=== PATIENT | male | born 1950 | race Caucasian/White ===

== ENCOUNTER → 2016-09-08 15:24 | Outpatient (CLI) | payer BC, MEDICARE | END | disposition home or self-care (01) | LOC: D.CT 15:24 | DX: R10.32 Left lower quadrant pain (principal); R10.9 Unspecified abdominal pain ==

== ENCOUNTER → 2016-12-09 14:02 | Outpatient (CLI) | payer BC, MEDICARE | END | disposition home or self-care (01) | LOC: D.MRI 14:02 | DX: R22.1 Localized swelling, mass and lump, neck (principal) ==

== ENCOUNTER → 2019-05-15 10:27 | Outpatient (CLI) | payer BC, MEDICARE ==
--- NOTE | 2019-05-16 11:25 | EC ---
PATIENT:FARHEEN PULIDO JR DATE OF SERVICE: 05/15/19 SEX: M MEDICAL RECORD: [id number] DATE OF : 46 LOCATION:[facility] AGE OF PATIENT: 68 ADMISSION DATE: 05/15/19 REFERRING PHYSICIAN: INTERPRETING PHYSICIAN: RANDA BERRY MD ECHOCARDIOGRAM REPORT ECHO CHARGES 4 ECHO COMPLETE Date: 05/15/19 CLINICAL DIAGNOSIS: HTN/CHEST PAIN ECHOCARDIOGRAPHIC MEASUREMENTS (adult normal given) AC root (d.<3.7cm) 3.8 cm LV Septum d (<1.2 cm> 1.2 cm Valve Excursion 1.8 cm LV Septum (systole) 1.3 cm Left Atria (s.<4.0cm> 3.8 cm LVPW d(<1.2cm) 1.3 cm RV (d.<2.3cm) 4.3 cm LVPW (sytole) 1.6 cm LV diastole(<5.6CM) 5.6 cm MV E-F(>70mm/sec) cm LV systole 3.5 cm LVOT Diameter 1.9 cm MV exc.(>10mm) 1.2 cm Est.ejection fraction (50-75%) % DOPPLER: LVIT cm/sec A 81.0 cm/sec E 49.0 cm/sec LA cm/sec RVSP 15 mmHg LVOT 90 cm/sec AOP1/2T m/s Asc. Ao 102 cm/sec RVOT 82 cm/sec RA cm/sec PA 101 cm/sec AV Gradient Peak 4.15 mmHg AV Mean 2.11 mmHg AV Area 2.6 cm MV Gradient Peak 3.30 mmHg MV Mean 0.84 mmHg MV Area cm COMMENTS: Supervisor Spinning: Mickey RÍOS Computer Aided Design Operator: 1 Dr. Berry TAPE# PACS Pericardial Effusion N DATE OF SERVICE: Echocardiogram FINDINGS: 1. Left ventricular chamber size is within normal limits. Left ventricular systolic function is normal. Overall ejection fraction estimated at 60% to 65%. 2. Left atrium is within normal limits at 3.8 cm. Right atrium and right ventricular chamber sizes are mildly dilated. 3. Valvular structures have normal structure and motion. ECHOCARDIOGRAM REPORT [id number] FARHEEN PULIDO JR 4. Doppler interrogation reveals no significant valvular insufficiency or stenosis and pulmonary systolic pressure estimated 15 mmHg. 5. No evidence of pericardial effusion or left ventricular thrombus. TRANSINT:[id number] Voice Confirmation ID: [id number] DOCUMENT ID: [id number] RANDA BERRY MD at 1125 CC: [id number] DICTATION DATE: 05/15/191709 FOOD CART ATTENDANT: 05/16/19 0138 DEP CLI 05/15/19 [place] [id number] [place] [id number]
--- NOTE | 2019-05-18 12:54 | ST ---
PATIENT:FARHEEN PULIDO JR MEDICAL RECORD: [id number] SEX: M LOCATION:[facility] ORDER #: ADMISSION DATE: 05/15/19 AGE OF PATIENT: 68 REFERRING PHYSICIAN: INTERPRETING PHYSICIAN: RANDA TRONCOSO MD DATE OF SERVICE: 05/15/2019 PROCEDURE: Nuclear stress test. INDICATION: Angina and coronary artery disease and hypertension. He was exercised on standard Lexiscan protocol with 33 mCi of sestamibi injected at peak stress, 11 mCi used previously for rest images. FINDINGS: Gated SPECT reveals a preserved ejection fraction of 58% with good wall motioning and thickening and brightening throughout all segments. SPECT imaging Cardiolite was used as myocardial perfusion agent. There are reversible changes inferiorly and laterally includes the basal, mid, apical, inferior segments, apical lateral, mid lateral, basal lateral segments. The degree of reversibility is moderate. The amount of myocardial involved is large. OVERALL IMPRESSION: This is a high risk abnormal nuclear stress test, large amount of myocardium showing reversible ischemia inferiorly and laterally, possibly suggestive of multivessel coronary artery disease. TRANSINT:[id number] Voice Confirmation ID: [id number] DOCUMENT ID: [id number] RANDA TRONCOSO MD at 1254 CC: [id number] DICTATION DATE: 05/16/19 1233 BLOWER ROOM ATTENDANT: 05/17/19 0417 DEP CLI 05/15/[address] [id number]
== END | disposition home or self-care (01) ==
LOC: D.HCCARDIO 10:27 → D.HCCECHO 11:30
PROVIDERS: ATTEND Internal Medicine Interventional Cardiology
DX: I10 Essential (primary) hypertension (principal); R07.9 Chest pain, unspecified